=== PATIENT | female | born 1995 | race African-American/Black ===

== ENCOUNTER 2017-09-24 16:30 | Emergency (ER) | payer MEDICAID ==
[~2017-09-24] VITALS: Ht 182.9 cm; Wt 102.1 kg
[2017-09-24] MEDS ORDERED: HYDROcodone-ACET 5/325MG TAB PO ONE (17:30)
[2017-09-24 18:10] VITALS: BP 116/71
== END 2017-09-24 18:22 | disposition home or self-care (01) ==
LOC: ER 16:30
DX: S93.119A Dislocation of interphalangeal joint of unspecified toe(s), initial encounter (principal); X58.XXXA Exposure to other specified factors, initial encounter; Y93.41 Activity, dancing; Y92.89 Other specified places as the place of occurrence of the external cause; Y99.8 Other external cause status
CPT/HCPCS: 28660; 73620

== ENCOUNTER 2017-10-03 12:33 | Emergency (ER) | payer MEDICAID ==
[~2017-10-03] VITALS: Ht 157.5 cm; Wt 61.7 kg
[2017-10-03 18:05] VITALS: BP 124/58
== END 2017-10-03 18:44 | disposition home or self-care (01) ==
LOC: ER 12:33
DX: S93.114A Dislocation of interphalangeal joint of right lesser toe(s), initial encounter (principal); X58.XXXA Exposure to other specified factors, initial encounter; Y93.41 Activity, dancing; Y99.8 Other external cause status; Y92.89 Other specified places as the place of occurrence of the external cause
CPT/HCPCS: 28660; 73620; 73630

== ENCOUNTER 2020-11-27 13:57 | Observation (INO) | payer MEDICAID, OTHER | END 2020-11-27 15:00 | disposition home or self-care (01) | LOC: LDRP 13:57 | PROVIDERS: ADMIT Obstetrics & Gynecology; ATTEND Obstetrics & Gynecology | DX: O62.9 Abnormality of forces of labor, unspecified (principal); O26.853 Spotting complicating pregnancy, third trimester; Z3A.39 39 weeks gestation of pregnancy | CPT/HCPCS: 59025; 81002; G0378 ==